=== PATIENT | male | born 1975 | race African-American/Black ===

== ENCOUNTER 2017-06-05 20:42 | Emergency (ER) | payer SELFPAY ==
[2017-06-05 20:51] VITALS: BP 142/90; BMI 28.8
--- NOTE | 2017-06-05 21:42 | DR.GENAD ---
HPI - PCP Primary Care Physician: nfd - Complaint/Symptoms Chief Complaint:: dental problems Self Treatment fo Chief Complaint: patient has been taking goody powders and ibuprofen. - Nurses notes reviewed Nurses Notes Review: Yes - Source History Provided: Patient - Mode of Arrival Mode of Arrival: Ambulatory - Timing Onset of Chief Complaint: 05/29/17 Came on: Gradually - Duration Duration: Constant How lon Duration: Days - Location Location: teeth - Severity Severity: Moderate - Modifying Factors Worsens:: chewing - Other History Other History: poor dentition PMH - PMH Past Medical History: No Past Surgical History: Yes Surgical History: Ortho Surgery Past Surgical History Comment: testicular torsion, ortho ankle and left hand - Family History History of Family Medical Conditions: Yes Family Medical History: Cancer - Social History Does patient currently use any type of tobacco product: Yes Have you used tobacco products in the last 12 months: Yes Type of Tobacco Use: Cigarettes Does any household member use tobacco: No Alcohol Use: None Do you use any recreational Drugs:: No Lives With: Family Lives Where: Home - infectious screening In the last 2 months have you had wt loss of >10#?: NO Have you had fever, night sweats or hemotysis?: No Have you traveled outside the country in the last 6 months?: No Isolation: Standard ROS - Review of Systems Constitutional: No Symptoms Reported Eyes: No Symptoms Reported ENTM: Mouth Pain (toothache) Respiratoy: No Symptoms Reported Cardiovascular: No Symptoms Reported Gastrointestinal/Abdominal: No Symptoms Reported Genitourinary: No Symptoms Reported Neurological: No Symptoms Reported Musculoskeletal: No Symptoms Reported Integumentary: No Symptoms Reported Hematologic/Lymphatic: No Symptoms Reported Endocrine: No Symptoms Reported Psychiatric: No Symptoms Reported PE - Vital Signs Vitals: Temperature 98.7 F Pulse Rate 85 Respiratory Rate 18 Blood Pressure 142/90 O2 Sat by Pulse Oximetry 97 - General Limitations: No Limitations General Appearance: Alert, In No Apparent Distress - Head Head Exam: Normal Inspection - Eyes Eye exam: Normal Appearance, EOMI. negative: Scleral Icterus, Conjunctival Injection - ENT ENT Exam: Normal Oropharynx - Neck Neck Exam: Normal Inspection, Full ROM, Trachea Midline - Chest Chest Inspection: Normal Inspection - Respiratory Respiratory Exam: negative: Accessory Muscle Use, Respiratory Distress - Extremities Extremities Exam: Normal Inspection, Full ROM - Neurologic Neurological Exam: Alert, Oriented X3, CN II-XII Intact - Psychiatric Psychiatric Exam: Normal Affect - Skin Skin Exam: Intact, Normal Color - Diagnosis Discharge Problem: Toothache - Discharge Plan Condition: Stable Prescriptions: Amoxicillin 500 mg PO TID #30 cap Tramadol HCl [ULTRAM 50 MG *] 50 mg PO Q8H PRN #15 tab PRN Reason: Pain - Follow ups/Referrals Follow ups/Referrals: NFD,None [Primary Care Provider] - 3 days - Instructions
[2017-06-05] MEDS ORDERED: AMOXIL CAP 500 MG PO ONE ×2 (21:44→21:47)
[2017-06-05] MEDS ORDERED: ULTRAM PO ONE (21:44)
[2017-06-05] MEDS ORDERED: ULTRAM ONE (21:48)
== END 2017-06-05 21:57 | disposition home or self-care (01) ==
LOC: ER 21:01
DX: K08.89 Other specified disorders of teeth and supporting structures (principal)
CPT/HCPCS: 99282

== ENCOUNTER 2017-08-03 23:29 | Emergency (ER) | payer SELFPAY ==
[2017-08-03 23:40] VITALS: BP 147/87; BMI 25.9
--- NOTE | 2017-08-04 00:59 | DR.GENAD ---
HPI - PCP Primary Care Physician: NFD - Complaint/Symptoms Chief Complaint Doctors Comments: Patient states that he works 12hrs/day six days per week and he is just tired. Chief Complaint:: " I BEEN DIZZY COLD SWEATS PAIN IN TEETH AND HEADACHE AND BEEN REAL TIRED FEELING. I BEEN CONFUSED AND HAD A ANXIETY ATTACK SUNDAY." - Source History Provided: Patient - Mode of Arrival Mode of Arrival: Ambulatory - Timing Onset of Chief Complaint: 07/31/17 PMH - PMH Past Medical History: No Past Medical History: Anxiety Past Surgical History: Yes Surgical History: Ortho Surgery, Other - Family History History of Family Medical Conditions: Yes Family Medical History: Cancer - Social History Type of Tobacco Use: Cigarettes Alcohol Use: None Do you use any recreational Drugs:: No Lives With: Family Lives Where: Home - infectious screening Have you traveled outside the country in the last 6 months?: No ROS - Review of Systems Eyes: No Symptoms Reported ENTM: No Symptoms Reported Respiratoy: No Symptoms Reported Cardiovascular: No Symptoms Reported Gastrointestinal/Abdominal: No Symptoms Reported Genitourinary: No Symptoms Reported Neurological: No Symptoms Reported Musculoskeletal: No Symptoms Reported Integumentary: No Symptoms Reported Hematologic/Lymphatic: No Symptoms Reported Endocrine: No Symptoms Reported Psychiatric: No Symptoms Reported All Other Systems: Reviewed and Negative PE - Vital Signs Vitals: Temperature 98.6 F Pulse Rate 73 Respiratory Rate 18 Blood Pressure 147/87 O2 Sat by Pulse Oximetry 100 - General General Appearance: Alert, In No Apparent Distress - Head Head Exam: Normal Inspection, Atraumatic - Eyes Eye exam: Normal Appearance, PERRL, EOMI - ENT ENT Exam: Normal Exam, Normal Oropharynx External Ear Exam: Normal External Inspection TM/Canal Exam: Bilateral Normal Nose Exam: Normal Nose Exam, Sinus Tenderness Mouth Exam: Normal Inspection Throat Exam: Tonsillar Erythema - Neck Neck Exam: Normal Inspection - Chest Chest Inspection: Normal Inspection - Respiratory Respiratory Exam: Normal Lung Sounds Bilat Respiratory Exam: Bilateral Clear to Auscultation - Cardiovascular Cardiovascular Exam: Regular Rate - Abdominal Exam Abdominal Exam: Normal Inspection Abdominal Tenderness: negative: RUQ, RLQ, LUQ, LLQ, Epigastrium, Suprapubic, Diffuse, Mild, Moderate, Severe, Other - Extremities Extremities Exam: Normal Inspection - Back Back Exam: Normal Inspection, Full ROM - Neurologic Neurological Exam: Alert, Oriented X3, CN II-XII Intact - Psychiatric Psychiatric Exam: Normal Affect, Normal Mood - Skin Skin Exam: Warm, Dry, Intact ROR - Labs Reviewed Laboratory Results Reviewed?: Yes (strep positive) - Diagnosis Discharge Problem: Pharyngitis Qualifiers: Pharyngitis/tonsillitis etiology: streptococcus Qualified Code(s): J02.0 - Streptococcal pharyngitis - Discharge Plan Condition: Stable - Follow ups/Referrals Follow ups/Referrals: NFD,None [Primary Care Provider] - 3 days - Instructions
== END 2017-08-04 01:37 | disposition home or self-care (01) ==
LOC: ER 23:44
DX: J02.0 Streptococcal pharyngitis (principal)
CPT/HCPCS: 87880; 99282

== ENCOUNTER 2017-09-07 10:41 | Emergency (ER) | payer SELFPAY ==
[2017-09-07 10:45] VITALS: BP 137/82; BMI 28.1
--- NOTE | 2017-09-07 11:05 | DR.GENAD ---
HPI - PCP Primary Care Physician: NFAly - HPI Comment HPI Comment: SYMTOMS WORSE TODAY. FEVER ON ABD OFF. TOOK SEVERAL ROUNDS OF ANTIBIOTICS BUT IT KEEP COMING BACK. - Complaint/Symptoms Chief Complaint Doctors Comments: SORE THROAT AND RT SIDE NECK SWELLING AND PAIN. Chief Complaint:: PT. C/O RIGHT SIDE OF HIS NECK FEELING SWOLLEN OR POSSIBLY HAVING A KNOT TO THAT AREA. PT. STATES IT IS PAINFUL AT TIMES AND HAS BEEN THERE FOR A WHILE. - Nurses notes reviewed Nurses Notes Review: Yes - Source History Provided: Patient - Mode of Arrival Mode of Arrival: Ambulatory - Timing Onset of Chief Complaint: 08/08/17 Came on: Gradually - Duration Duration: Constant Duration: Days PMH - PMH Past Medical History: No Past Medical History: Anxiety Past Surgical History: Yes Surgical History: Other Past Surgical History Comment: LEFT HAND - Family History History of Family Medical Conditions: Yes Family Medical History: Cancer - Social History Does patient currently use any type of tobacco product: Yes Have you used tobacco products in the last 12 months: Yes Type of Tobacco Use: Cigarettes Does any household member use tobacco: No Alcohol Use: None Do you use any recreational Drugs:: Yes (MARIJUANA) Lives With: Alone Lives Where: Home - infectious screening In the last 2 months have you had wt loss of >10#?: NO Have you had fever, night sweats or hemotysis?: No Have you traveled outside the country in the last 6 months?: No Isolation: Standard ROS - Review of Systems Constitutional: Fever Eyes: No Symptoms Reported ENTM: Mouth Pain, Throat Pain. negative: Ear Pain, Nose Discharge, Nose Congestion Respiratoy: Non-Productive Cough Cardiovascular: No Symptoms Reported Gastrointestinal/Abdominal: No Symptoms Reported Genitourinary: No Symptoms Reported Neurological: Headache Musculoskeletal: No Symptoms Reported Integumentary: No Symptoms Reported Hematologic/Lymphatic: No Symptoms Reported Endocrine: No Symptoms Reported All Other Systems: Reviewed and Negative PE - Vital Signs Vitals: Temperature 98.8 F Pulse Rate 84 Respiratory Rate 17 Blood Pressure 137/82 O2 Sat by Pulse Oximetry 98 - General Limitations: No Limitations General Appearance: Alert - Head Head Exam: Normal Inspection - Eyes Eye exam: Normal Appearance - ENT ENT Exam: Normal External Ear Exam External Ear Exam: Normal External Inspection TM/Canal Exam: Bilateral Normal Nose Exam: Normal Nose Exam Mouth Exam: Other (MOLARS TEETH EATEN UP WITH REMINALT EMBEDDE IN GUM. THROAT RED.) Throat Exam: Tonsillar Erythema (LT) - Neck Neck Exam: Trachea Midline, Tenderness (RT SUB MANDIBULAR NODES PALPABLE AND TENDER.) - Chest Chest Inspection: Symmetric Chest Wall Rise - Respiratory Respiratory Exam: Normal Lung Sounds Bilat Respiratory Exam: Bilateral Clear to Auscultation - Cardiovascular Cardiovascular Exam: Regular Rate, Normal Rhythm, Normal Heart Sounds - Abdominal Exam Abdominal Exam: Normal Bowel Sounds, Soft. negative: Tenderness - Extremities Extremities Exam: Normal Inspection - Back Back Exam: Normal Inspection - Neurologic Neurological Exam: Alert, Oriented X3 - Psychiatric Psychiatric Exam: Normal Affect, Normal Mood - Skin Skin Exam: Normal Color MDM - Differential Diagnosis Differential Diagnosis: TONSILITIS, ADENITIS, TENDAL INFECTION, GINGIVITIS. Course - Treatment Treatment: SEE ORDERS. - Education/Counseling Education/Counseling: Patient, Education Educated On: Diagnosis, Needs for Follow Up ROR - Labs Reviewed Laboratory Results Reviewed?: Yes Result Diagrams: 09/07/17 11:23 Laboratory: 09/07/17 11:25 Throat Throat Culture - Final WBC 9.2 X10^3/uL (3.6-10.0) 09/07/17 11:23 RBC 4.45 X10^6/uL (4.7-6.0) L 09/07/17 11:23 Hgb 12.8 g/dL (13.5-18.0) L 09/07/17 11:23 Hct 37.0 % (42.0-54.0) L 09/07/17 11:23 MCV 83.2 fL (80.0-100.0) 09/07/17 11:23 MCH 28.8 pg (27.0-34.0) 09/07/17 11:23 MCHC 34.6 g/dL (33.0-35.0) 09/07/17 11:23 RDW 13.5 % (11.6-16.5) 09/07/17 11:23 Plt Count 139 X10^3/uL (150.0-450.0) L 09/07/17 11:23 MPV 10.1 fL (7.4-11.0) 09/07/17 11:23 Neut % 44.6 % (42.0-75.0) 09/07/17 11:23 Lymph % 41.8 % (21.0-51.0) 09/07/17 11:23 [place] % 6.1 % (0.0-13.0) 09/07/17 11:23 Eos % 6.5 % (0.9-2.9) H 09/07/17 11:23 Baso % 1.0 % (0.2-1.0) 09/07/17 11:23 Neut # 4.1 x10^3/uL (2.2-4.8) 09/07/17 11:23 Lymph # 3.9 X10^3/uL (1.3-2.9) H 09/07/17 11:23 [place] # 0.6 x10^3/uL (0.3-0.8) 09/07/17 11:23 Eos # 0.6 x10^3/uL (0.0-0.2) H 09/07/17 11:23 Baso # 0.1 X10^3/uL (0.0-0.1) 09/07/17 11:23 Absolute Nucleated RBC 0.1 /100WBC 09/07/17 11:23 Streptococcus Screen Negative (NEGATIVE) 09/07/17 11:25 - Diagnosis Discharge Problem: Toothache, Cavities, Submandibular lymphadenopathy, Pain, dental Pharyngitis Qualifiers: Pharyngitis/tonsillitis etiology: other specified organisms Qualified Code(s): J02.8 - Acute pharyngitis due to other specified organisms - Discharge Plan Disposition: HOME, SELF-CARE Condition: Stable Prescriptions: Clindamycin HCl 300 mg PO Q6H #40 cap Ibuprofen [MOTRIN TAB 800 MG *] 800 mg PO Q8H PRN #20 tab PRN Reason: Pain/Inflammation - Follow ups/Referrals Follow ups/Referrals: NFD,None [Primary Care Provider] - 3 days EDNA SNYDER [STAFF PHYSICIAN] - 3 days - Instructions Instructions: Tonsillitis, [id number], Gingivitis, [id number], Dental Caries Additional Instructions: RETURN TO ED IF WORSE. FOLLOW UP WITH DENTIST AND EAR, NOSE AND THROAT
[2017-09-07 11:32] LABS: BASOPHILS # (AUTO) 0.1 X10^3/uL (0.0-0.1); EOSINOPHILS # (AUTO) 0.6 x10^3/uL (0.0-0.2); EOSINOPHILS % (AUTO) 6.5 % (0.9-2.9); HEMOGLOBIN 12.8 g/dL (13.5-18.0); LYMPHOCYTES # (AUTO) 3.9 X10^3/uL (1.3-2.9); LYMPHOCYTES % (AUTO) 41.8 % (21.0-51.0); MEAN CORPUSCULAR HEMOGLOBIN 28.8 pg (27.0-34.0); MEAN CORPUSCULAR HGB CONC 34.6 g/dL (33.0-35.0); MEAN CORPUSCULAR VOLUME 83.2 fL (80.0-100.0); MEAN PLATELET VOLUME 10.1 fL (7.4-11.0); MONOCYTES # (AUTO) 0.6 x10^3/uL (0.3-0.8); MONOCYTES % (AUTO) 6.1 % (0.0-13.0); NEUTROPHILS # (AUTO) 4.1 x10^3/uL (2.2-4.8); NEUTROPHILS % (AUTO) 44.6 % (42.0-75.0); PLATELET COUNT 139 X10^3/uL (150.0-450.0); RED BLOOD COUNT 4.45 X10^6/uL (4.7-6.0); RED CELL DISTRIBUTION WIDTH 13.5 % (11.6-16.5); WHITE BLOOD COUNT 9.2 X10^3/uL (3.6-10.0)
== END 2017-09-07 12:15 | disposition home or self-care (01) ==
LOC: ER 10:48
DX: J02.8 Acute pharyngitis due to other specified organisms (principal); R59.0 Localized enlarged lymph nodes; K08.89 Other specified disorders of teeth and supporting structures; K02.9 Dental caries, unspecified
CPT/HCPCS: 36415; 85025; 87070; 87880; 99282

== ENCOUNTER 2017-09-12 00:16 | Emergency (ER) | payer SELFPAY ==
[2017-09-12 00:24] VITALS: BP 151/100; BMI 27.3
--- NOTE | 2017-09-12 00:58 | DR.GENAD ---
HPI - HPI Comment HPI Comment: SEEN IN ED 2 DAYS AGO AND PRESCRIBE CLINDAMYCIN. TAKING MED BUT WANT XRAY OF HIS TEETH AND MOUTH. NO FEVER. DIS NOT TAKE MEDICATION PRESCRIBE 2 DAYS AGO. DENIES DRAINAGE. - Complaint/Symptoms Chief Complaint Doctors Comments: SORE THROAT AND TOOTHACHE FOR SEVERAL WEEKS. Chief Complaint:: PT C/O TONSIL AND TEETH PAIN. PT WAS SEEN FOR SAME 3 DAYS AGO. PT REFUSED TO ANSWER QUESTIONS IN TRIAGE STATES THAT WE CAN "SEE THE CHART FROM [facility]" REQUESTING XRAY OF MOUTH Self Treatment fo Chief Complaint: DID NOT FOLLOW WITH DENTIST - Nurses notes reviewed Nurses Notes Review: Yes - Source History Provided: Patient - Mode of Arrival Mode of Arrival: Ambulatory - Timing Onset of Chief Complaint: 09/08/17 Came on: Suddenly - Duration Duration: Constant Duration: Days - Severity Severity: Moderate PMH - PMH Past Medical History: Yes Past Medical History: Anxiety Past Surgical History: No Surgical History: Other - Family History History of Family Medical Conditions: Yes Family Medical History: Cancer - Social History Do you use any recreational Drugs:: Yes (MARIJUANA) - infectious screening Have you traveled outside the country in the last 6 months?: No ROS - Review of Systems Constitutional: No Symptoms Reported Eyes: No Symptoms Reported ENTM: Mouth Pain, Throat Pain. negative: Ear Pain, Nose Discharge, Nose Congestion Respiratoy: No Symptoms Reported Cardiovascular: No Symptoms Reported Gastrointestinal/Abdominal: No Symptoms Reported Genitourinary: No Symptoms Reported Neurological: No Symptoms Reported. negative: Headache Musculoskeletal: No Symptoms Reported Integumentary: No Symptoms Reported Hematologic/Lymphatic: Lymphadenopathy Endocrine: No Symptoms Reported All Other Systems: Reviewed and Negative PE - Vital Signs Vitals: Temperature 98.6 F Pulse Rate 83 Respiratory Rate 18 Blood Pressure 151/100 O2 Sat by Pulse Oximetry 100 - General Limitations: No Limitations General Appearance: Alert - Head Head Exam: Normal Inspection - Eyes Eye exam: Normal Appearance - ENT ENT Exam: Normal External Ear Exam External Ear Exam: Normal External Inspection TM/Canal Exam: Bilateral Normal Nose Exam: Normal Nose Exam Mouth Exam: Other (MOLARS ARE ALL DECAY. ONLY POTION OF TOOTH ENBEDED IN GUM REMAIN. GUM LESS INFLAME TODAY.) Throat Exam: Tonsillar Erythema, Tonsillomegaly. negative: Tonsillar Exudate - Neck Neck Exam: Trachea Midline, Lymphadenopathy (RT SUBMANDIBULAR NODE INFLAME.) - Chest Chest Inspection: Symmetric Chest Wall Rise - Respiratory Respiratory Exam: Normal Lung Sounds Bilat Respiratory Exam: Bilateral Clear to Auscultation - Abdominal Exam Abdominal Exam: Normal Bowel Sounds, Soft. negative: Tenderness - Extremities Extremities Exam: Normal Inspection - Back Back Exam: Normal Inspection - Neurologic Neurological Exam: Alert, Oriented X3 - Psychiatric Psychiatric Exam: Normal Affect - Skin Skin Exam: Normal Color MDM - Differential Diagnosis Differential Diagnosis: DENTAL PAIN, GINGIVITIS, TONSILITIS Course - Treatment Treatment: SEE ORDERS. - Education/Counseling Education/Counseling: Patient, Education Educated On: Treatment, Diagnosis, Needs for Follow Up - Diagnosis Discharge Problem: Chronic gum disease, Submandibular lymphadenopathy, Toothache Pharyngitis Qualifiers: Pharyngitis/tonsillitis etiology: other specified organisms Qualified Code(s): J02.8 - Acute pharyngitis due to other specified organisms - Discharge Plan Disposition: 01 HOME, SELF-CARE Condition: Stable - Follow ups/Referrals Follow ups/Referrals: TORRES DIAS [REFERRING] - 09/13/17 NFD,None [Primary Care Provider] - 09/13/17 - Instructions Instructions: Tonsillitis, [id number], Gingivitis Additional Instructions: RETURN TO ED IF WORSE. SEE DENTIST THIS AM. CONTINUE WITH CLINDAMYCIN
== END 2017-09-12 02:12 | disposition home or self-care (01) ==
LOC: ER 00:16
DX: K06.9 Disorder of gingiva and edentulous alveolar ridge, unspecified (principal); R59.0 Localized enlarged lymph nodes; K08.89 Other specified disorders of teeth and supporting structures; J02.8 Acute pharyngitis due to other specified organisms
CPT/HCPCS: 99281; 99282

== ENCOUNTER 2018-03-03 23:52 | Emergency (ER) | payer SELFPAY ==
[2018-03-04 00:10] VITALS: BMI 28.1
[2018-03-04 00:31] LABS: BILIRUBIN,URINE NEGATIVE (NEGATIVE); BLOOD/HEMOGLOBIN,URINE 1+ (NEGATIVE); GLUCOSE, URINE NEGATIVE (NEGATIVE); KETONES,URINE NEGATIVE (NEGATIVE); LEUKOCYTE ESTERASE ,URINE 1+ (NEGATIVE); NITRITES,URINE NEGATIVE (NEGATIVE); PROTEIN,URINE NEGATIVE (NEGATIVE); UROBILINOGEN,URINE NORMAL (NORMAL)
[2018-03-04 00:34] LABS: APPEARANCE,URINE CLEAR (CLEAR); COLOR,URINE YELLOW (YELLOW)
[2018-03-04 00:35] LABS: BACTERIA,URINE NEGATIVE /HPF (NEGATIVE); RBC,URINE 0-2 /HPF (NONE SEEN); SQUAMOUS EPITHELIAL CELL,UR RARE /HPF (NEGATIVE)
[2018-03-04 00:41] LABS: BASOPHILS # (AUTO) 0.1 X10^3/uL (0.0-0.1); BASOPHILS % (AUTO) 0.9 % (0.2-1.0); EOSINOPHILS # (AUTO) 0.8 x10^3/uL (0.0-0.2); EOSINOPHILS % (AUTO) 7.2 % (0.9-2.9); HEMOGLOBIN 12.3 g/dL (13.5-18.0); LYMPHOCYTES # (AUTO) 4.9 X10^3/uL (1.3-2.9); LYMPHOCYTES % (AUTO) 42.2 % (21.0-51.0); MEAN CORPUSCULAR HEMOGLOBIN 28.4 pg (27.0-34.0); MEAN CORPUSCULAR HGB CONC 33.1 g/dL (33.0-35.0); MEAN CORPUSCULAR VOLUME 85.6 fL (80.0-100.0); MEAN PLATELET VOLUME 10.5 fL (7.4-11.0); MONOCYTES # (AUTO) 0.6 x10^3/uL (0.3-0.8); MONOCYTES % (AUTO) 5.5 % (0.0-13.0); NEUTROPHILS # (AUTO) 5.1 x10^3/uL (2.2-4.8); NEUTROPHILS % (AUTO) 44.2 % (42.0-75.0); PLATELET COUNT 134 X10^3/uL (150.0-450.0); RED BLOOD COUNT 4.32 X10^6/uL (4.7-6.0); RED CELL DISTRIBUTION WIDTH 13.9 % (11.6-16.5); WHITE BLOOD COUNT 11.6 X10^3/uL (3.6-10.0)
--- NOTE | 2018-03-04 01:14 | DR.CP ---
HPI - Time Seen Time seen: 15:00 - PCP Primary Care Physician: KELLEE - HPI Comment HPI Comment: TONIGHT PAIN WORSE. FEEL HIT ON THE RIGHT SIDE. WAS AT [facility] YESTERDAY. DIAGNOSE WITH KIDNEY STONE BUT NOT BETTER. STATED WITH DIARRHEA TODAY. NO FEVER OR DYSURIA. - Complaint Chief Complaint Doctor Comments: ABDOMINAL PAIN AND CHEST PAIN TIMES 2 WEEKS. Chief Complaint:: CHEST PAIN FOR LAST 2 WEEKS. "ITS BEEN IN MY INTESTINES, POINTING TO THE EPIGASTRIC AREA. I WENT TO [facility] THEY TOLD ME I HAD A KIDNEY STONE. I DON;T KNOW IF ITS ALL BROKE UP NOW AND MOVED." - Reviewed Nurses Notes Review: Yes - Source History Provided: Patient, EMS - Mode of Arrival Mode of Arrival: EMS - Timing Onset of Chief Complaint: 02/17/18 Came on: Suddenly Pain: Present Now - Duration Duration: Constant Duration: Days - Location Location of Chest Pain: Chest Chest Pain Radiation Location: Abdomen - Context Onset: At rest Cardiac Risk Factors: Smoker PE Risk Factors: None History of: None Prehospital Care: IV - Quality Quality: Sharp - Severity Severity: Moderate - Modifying Factors Worsens: Nothing Impoves: Nothing - Associated Signs and Symptoms Associated Signs and Symptoms: Abdominal Pain PMH - PMH Past Medical History: Yes Past Medical History: Anxiety Past Surgical History: Yes Surgical History: Other Past Surgical History Comment: LEFT HAND - Family History History of Family Medical Conditions: Yes Family Medical History: Cancer - Social History Type of Tobacco Use: Cigarettes Alcohol Use: None Do you use any recreational Drugs:: Yes (MARIJUANA) Lives Where: Home - infectious screening Have you traveled outside the country in the last 6 months?: No Isolation: Standard ROS - Review of Systems Constitutional: Weakness, Fatigue. negative: Fever Eyes: No Symptoms Reported. negative: Eye Pain, Discharge ENTM: No Symptoms Reported. negative: Ear Discharge, Nose Discharge, Nose Congestion, Throat Pain Respiratoy: No Symptoms Reported, See HPI. negative: Short of Breath, Wheezing , Hemoptysis Cardiovascular: Chest Pain Gastrointestinal/Abdominal: Abdominal Pain, Diarrhea, Nausea. negative: Vomiting Genitourinary: No Symptoms Reported. negative: Dysuria, Frequency, Hematuria, Pain Neurological: Weakness, Dizziness Musculoskeletal: Muscle Pain Integumentary: Dryness All Other Systems: Reviewed and Negative PE - Vitals Vitals: Temperature 98.8 F Pulse Rate [Right Brachial] 60 Pulse Rate 80 Respiratory Rate 62 Blood Pressure [Right Arm] 121/82 Blood Pressure 149/88 O2 Sat by Pulse Oximetry 100 - General Limitations: No Limitations General Appearance: Alert - Head Head Exam: Normal Inspection - Eyes Eye exam: Normal Appearance - ENT ENT Exam: Normal External Ear Exam - Respiratory Respiratory Exam: Normal Lung Sounds Bilat Respiratory Exam: Bilateral Rhonchi, Lower Rhonchi - Cardiovascular Cardiovascular Exam: Regular Rate, Normal Rhythm, Normal Heart Sounds - Abdominal Exam Abdominal Exam: Normal Bowel Sounds, Soft, Tenderness Abdominal Tenderness: Diffuse, Moderate - Extremities Extremities Exam: Normal Inspection. negative: Edema - Back Back Exam: Normal Inspection - Neurologic Neurological Exam: Alert, Oriented X3 - Psychiatric Psychiatric Exam: Anxious - Skin Skin Exam: Erythema MDM - Differential Diagnosis Differential Diagnosis: Chest Wall Pain, Esophageal Reflux/Spasm, Gastritis, Myocardial Infarction, Pleuritis, Pneumonia Course - Treatment Treatment: SEE ORDERS. - Education/Counseling Education/Counseling: Patient, Education Educated On: Diagnosis, Needs for Follow Up ROR - Labs Reviewed Laboratory Results Reviewed?: Yes Result Diagrams: 03/04/18 00:34 03/04/18 00:34 Laboratory: 03/04/18 03:00 Stool - Final WBC 11.6 X10^3/uL (3.6-10.0) H 03/04/18 00:34 RBC 4.32 X10^6/uL (4.7-6.0) L 03/04/18 00:34 Hgb 12.3 g/dL (13.5-18.0) L 03/04/18 00:34 Hct 37.0 % (42.0-54.0) L 03/04/18 00:34 MCV 85.6 fL (80.0-100.0) 03/04/18 00:34 MCH 28.4 pg (27.0-34.0) 03/04/18 00:34 MCHC 33.1 g/dL (33.0-35.0) 03/04/18 00:34 RDW 13.9 % (11.6-16.5) 03/04/18 00:34 Plt Count 134 X10^3/uL (150.0-450.0) L 03/04/18 00:34 MPV 10.5 fL (7.4-11.0) 03/04/18 00:34 Neut % (Auto) 44.2 % (42.0-75.0) 03/04/18 00:34 Lymph % (Auto) 42.2 % (21.0-51.0) 03/04/18 00:34 [place] % (Auto) 5.5 % (0.0-13.0) 03/04/18 00:34 Eos % (Auto) 7.2 % (0.9-2.9) H 03/04/18 00:34 Baso % (Auto) 0.9 % (0.2-1.0) 03/04/18 00:34 Neut # (Auto) 5.1 x10^3/uL (2.2-4.8) H 03/04/18 00:34 Lymph # (Auto) 4.9 X10^3/uL (1.3-2.9) H 03/04/18 00:34 [place] # (Auto) 0.6 x10^3/uL (0.3-0.8) 03/04/18 00:34 Eos # (Auto) 0.8 x10^3/uL (0.0-0.2) H 03/04/18 00:34 Baso # (Auto) 0.1 X10^3/uL (0.0-0.1) 03/04/18 00:34 Absolute Nucleated RBC 0.1 /100WBC 03/04/18 00:34 Sodium 142 mmol/L (136-145) 03/04/18 00:34 Corrected Sodium TNP 03/04/18 00:34 Potassium 3.5 mmol/L (3.5-5.1) 03/04/18 00:34 Chloride 105 mmol/L (98-107) 03/04/18 00:34 Carbon Dioxide 28.2 mmol/L (21-32) 03/04/18 00:34 BUN 21 mg/dL (7-18) H 03/04/18 00:34 Creatinine 1.03 mg/dL (0.70-1.30) 03/04/18 00:34 Est GFR (MDRD) Af Amer > 60 (>60) 03/04/18 00:34 Est GFR (MDRD) Non-Af > 60 (>60) 03/04/18 00:34 Glucose 95 mg/dL (65-99) 03/04/18 00:34 Calcium 8.5 mg/dL (8.5-10.1) 03/04/18 00:34 Corrected Calcium TNP 03/04/18 00:34 Total Bilirubin 0.20 mg/dL (0.2-1.0) 03/04/18 00:34 AST 64 Units/L (15-37) H 03/04/18 00:34 ALT 53 Units/L (12-78) 03/04/18 00:34 Alkaline Phosphatase 101 Units/L (46-116) 03/04/18 00:34 Creatine Kinase 2753 Units/L (39-308) H 03/04/18 00:34 CK-MB (CK-2) 2.8 ng/mL (0-4.0) 03/04/18 00:34 CK/CKMB % Calc 0.1 % (<4) 03/04/18 00:34 Troponin I < 0.02 ng/mL (0-1.5) 03/04/18 00:34 Total Protein 7.5 g/dL (6.4-8.2) 03/04/18 00:34 Albumin 3.9 g/dL (3.4-5.0) 03/04/18 00:34 Globulin 3.6 g/dL (2.5-4.5) 03/04/18 00:34 Albumin/Globulin Ratio 1.1 Ratio (1.1-2.1) 03/04/18 00:34 Specimen Type Clean catch urine 03/04/18 00:20 Urine Color Yellow (YELLOW) 03/04/18 00:20 Urine Appearance Clear (CLEAR) 03/04/18 00:20 Urine pH 5.0 (5.0 - 8.0) 03/04/18 00:20 Ur Specific [place] 1.015 (1.000-1.030) 03/04/18 00:20 Urine Protein Negative (NEGATIVE) 03/04/18 00:20 Urine Glucose (UA) Negative (NEGATIVE) 03/04/18 00:20 Urine Ketones Negative (NEGATIVE) 03/04/18 00:20 Urine Occult Blood 1+ (NEGATIVE) 03/04/18 00:20 Urine Nitrite Negative (NEGATIVE) 03/04/18 00:20 Urine Bilirubin Negative (NEGATIVE) 03/04/18 00:20 Urine Urobilinogen Normal (NORMAL) 03/04/18 00:20 Ur Leukocyte Esterase 1+ (NEGATIVE) 03/04/18 00:20 Urine RBC 0-2 /HPF (NONE SEEN) 03/04/18 00:20 Urine WBC 0-2 /HPF (NONE SEEN) 03/04/18 00:20 Ur Squamous Epith Cells Rare /HPF (NEGATIVE) 03/04/18 00:20 Urine Bacteria Negative /HPF (NEGATIVE) 03/04/18 00:20 Ur Culture Indicated? No/not indicated 03/04/18 00:20 Stool Description 15 g. brown/liquid 03/04/18 03:00 Stool for White Cells Negative (NEGATIVE) 03/04/18 03:00 Stl C. diff Tox B Gene Negative (NEGATIVE) 03/04/18 03:00 Stl C. diff [id number] Negative (NEGATIVE) 03/04/18 03:00 Urine Opiates Screen Negative (NEG=<300) 03/04/18 00:20 Urine Methadone Screen Negative (NEG=<300) 03/04/18 00:20 Ur Barbiturates Screen Negative (NEG=<200) 03/04/18 00:20 Ur Phencyclidine Scrn Negative (NEG=<25) 03/04/18 00:20 Ur Amphetamines Screen Negative (NEG=<1000) 03/04/18 00:20 U Benzodiazepines Scrn Negative (NEG=<200) 03/04/18 00:20 Urine Cocaine Screen Negative (NEG=<300) 03/04/18 00:20 U Marijuana (THC) Screen Negative (NEG=<50) 03/04/18 00:20 Cryptosporid parvum Ag Negative (NEGATIVE) 03/04/18 03:00 E. histolytica Antigen Negative (NEGATIVE) 03/04/18 03:00 Giardia lamblia Ag Negative (NEGATIVE) 03/04/18 03:00 - XRAY XRAY Interpreted by: Radiologist XRAY Findings: REPORT DISCUSS WITH PATIENT. - EKG Rhythm: NSR (EKG NOTED) - Diagnosis Discharge Problem: Abdominal pain Qualifiers: Abdominal location: upper abdomen, unspecified Qualified Code(s): R10.10 - Upper abdominal pain, unspecified Chest pain Qualifiers: Chest pain type: unspecified Qualified Code(s): R07.9 - Chest pain, unspecified Rhabdomyolysis Qualifiers: Rhabdomyolysis type: non-traumatic Qualified Code(s): M62.82 - Rhabdomyolysis Diarrhea Qualifiers: Diarrhea type: unspecified type Qualified Code(s): R19.7 - Diarrhea, unspecified - Discharge Plan Condition: Stable Prescriptions: Dicyclomine HCl [Bentyl Cap 10 mg] 10 mg PO TID PRN #15 cap PRN Reason: Diphenoxylate/Atropine [Lomotil] 1 tab PO TID PRN #15 tab PRN Reason: Ranitidine HCl [ZANTAC TAB 150 MG *] 150 mg PO BID #60 tab - Follow ups/Referrals Follow ups/Referrals: NFD,None [Primary Care Provider] - 2 days - Instructions Instructions: Chest Wall Pain, Tzel-or-Eleq, Abdominal Pain, Adult, Easy-to- Read, Diarrhea, Adult, [id number] Additional Instructions: RETURN TO ED IF WORSE.
[2018-03-04 01:19] LABS: BLOOD UREA NITROGEN 21 mg/dL (7-18); CALCIUM 8.5 mg/dL (8.5-10.1); CARBON DIOXIDE 28.2 mmol/L (21-32); CHLORIDE 105 mmol/L (98-107); CREATININE 1.03 mg/dL (0.70-1.30); SODIUM 142 mmol/L (136-145); TROPONIN I < 0.02 ng/mL (0-1.5); eGFR BLACK RACES > 60 (>60); eGFR NON BLACK RACES > 60 (>60)
[2018-03-04 01:27] LABS: ALANINE AMINOTRANSFERASE 53 Units/L (12-78); ALBUMIN 3.9 g/dL (3.4-5.0); ALKALINE PHOSPHATASE 101 Units/L (46-116); ASPARTATE AMINO TRANSFERASE 64 Units/L (15-37); CREATINE KINASE MB 2.8 ng/mL (0-4.0); TOTAL PROTEIN 7.5 g/dL (6.4-8.2)
[2018-03-04 01:28] LABS: CKMB % 0.1 % (<4); CREATINE KINASE 2753 Units/L (39-308)
[2018-03-04] MEDS ORDERED: NS 1000 ML 1,000 ML IV ONE (02:13)
[2018-03-04] MEDS ORDERED: PEPCID 20 MG IV PREMIX* 20 MG/50 ML BAG IV ONE ×2 (02:13→02:15)
[2018-03-04] MEDS ORDERED: NS 1000 ML 1,000 ML ONE (02:15)
[2018-03-04 04:06] LABS: CRYPTOSPORIDIUM PARVUM ANTIGEN NEGATIVE (NEGATIVE); GIARDIA LAMBLIA ANTIGEN NEGATIVE (NEGATIVE); STOOL FOR WBC NEGATIVE (NEGATIVE)
[2018-03-04] MEDS ORDERED: LOMOTIL PO ONE (04:49)
[2018-03-04] MEDS ORDERED: BENTYL CAP 10 MG PO ONE ×2 (05:35→05:42)
--- NOTE | 2018-03-04 05:43 | RAD ---
Chest PA and lateral Indication: Chest pain Findings: There is no pneumothorax or effusion. There is no consolidation. Heart size is normal. Impression: No acute chest process Reported By:
[2018-03-04 05:47] VITALS: BP 121/82
[2018-03-04] MEDS ORDERED: PROVENTIL NEB TX 0.083% 2.5MG/ 3ML ONE (14:45)
== END 2018-03-04 05:47 | disposition home or self-care (01) ==
LOC: ER 23:52
DX: R07.89 Other chest pain (principal); R10.84 Generalized abdominal pain; M62.82 Rhabdomyolysis; R19.7 Diarrhea, unspecified; R94.31 Abnormal electrocardiogram [ECG] [EKG]
CPT/HCPCS: 36415; 71046; 80053; 80307; 81001; 82550; 82553; 83630; 84484; 85025; 87045; 87328; 87329; 87336; 87427; 87449; 87493; 93005; 93010; 96365; 96367; 96374; 99283; S0028; G0434; J7613

== ENCOUNTER 2018-03-08 10:35 | Emergency (ER) | payer SELFPAY ==
[2018-03-08 10:39] VITALS: BP 129/81; BMI 25.8
--- NOTE | 2018-03-08 11:20 | DR.GENAD ---
HPI - PCP Primary Care Physician: nfd - Complaint/Symptoms Chief Complaint Doctors Comments: He states that it feels as if something is crawling inside him - both in the chest and abdomen. He denies consuming poorly prepared food, swimming in infested givens and has not travelled outside of the [facility] recently. Chief Complaint:: Patient stated "I think I have a parasite in my stomach. I have had diarrhea and my stomach feels like something is swimming in it for a week." - Nurses notes reviewed Nurses Notes Review: Yes - Source History Provided: Patient - Mode of Arrival Mode of Arrival: Ambulatory - Timing Onset of Chief Complaint: 03/03/18 PMH - PMH Past Medical History: No Past Medical History: Anxiety Past Surgical History: Yes Surgical History: Other Past Surgical History Comment: ortho and tesitcal surgery - Family History History of Family Medical Conditions: Yes Family Medical History: Diabetes Mellitus, Cancer - Social History Does patient currently use any type of tobacco product: Yes Have you used tobacco products in the last 12 months: Yes Type of Tobacco Use: Cigarettes Does any household member use tobacco: No Alcohol Use: None Do you use any recreational Drugs:: No Lives With: Family Lives Where: Home - infectious screening In the last 2 months have you had wt loss of >10#?: NO Have you had fever, night sweats or hemotysis?: No Have you traveled outside the country in the last 6 months?: No Isolation: Standard ROS - Review of Systems Constitutional: No Symptoms Reported Eyes: No Symptoms Reported ENTM: No Symptoms Reported Respiratoy: No Symptoms Reported Cardiovascular: No Symptoms Reported Gastrointestinal/Abdominal: Other (crawling objects within me) Genitourinary: No Symptoms Reported Neurological: No Symptoms Reported Musculoskeletal: No Symptoms Reported Integumentary: No Symptoms Reported Hematologic/Lymphatic: No Symptoms Reported Endocrine: No Symptoms Reported Psychiatric: No Symptoms Reported All Other Systems: Reviewed and Negative PE - Vital Signs Vitals: Temperature 98.6 F Pulse Rate 77 Respiratory Rate 19 Blood Pressure [Right Arm] 121/82 Blood Pressure 129/81 O2 Sat by Pulse Oximetry 99 - General Limitations: No Limitations General Appearance: Alert, In No Apparent Distress - Head Head Exam: Normal Inspection - Eyes Eye exam: Normal Appearance - ENT ENT Exam: Normal Exam - Neck Neck Exam: Normal Inspection - Chest Chest Inspection: Normal Inspection - Respiratory Respiratory Exam: Normal Lung Sounds Bilat - Cardiovascular Cardiovascular Exam: Regular Rate, Normal Rhythm, +S1, +S2 - Abdominal Exam Abdominal Exam: Normal Inspection, Normal Bowel Sounds, Soft - Extremities Extremities Exam: Normal Inspection - Back Back Exam: Normal Inspection - Neurologic Neurological Exam: Alert, Oriented X3 - Psychiatric Psychiatric Exam: Normal Affect, Normal Mood - Skin Skin Exam: Warm, Dry, Intact, Normal Color ROR - XRAY XRAY Interpreted by: Self (CXR NAD; KUB: no free air, non-obstructing gas pattern.) - Diagnosis Discharge Problem: Impaired sensation - Discharge Plan Disposition: HOME, SELF-CARE Condition: Stable - Follow ups/Referrals Follow ups/Referrals: NFD,None [Primary Care Provider] - 3 days - Instructions Instructions: Paresthesia, [id number]
--- NOTE | 2018-03-08 11:58 | RAD ---
Indication: Pain Exam: PA and lateral Comparison: 03/04/2018 Findings: The heart is normal. The pulmonary vessels are normal. No consolidation or effusion is seen . The bones are intact. Impression: Stable chest with no acute abnormality seen. Reported By:
--- NOTE | 2018-03-08 12:05 | RAD ---
HISTORY: Indigestion, stomach pain, vomiting Study: KUB Comparison: None Findings: Single partial view of the abdomen demonstrates a normal nonobstructive bowel-gas pattern with some r etained stool throughout the colon. No abnormal calcification or soft tissue masses are identified. T he skeletal structures appear intact. IMPRESSION: 1. No acute process. Reported By:
== END 2018-03-08 13:04 | disposition home or self-care (01) ==
LOC: ER 10:54
DX: R20.2 Paresthesia of skin (principal)
CPT/HCPCS: 71046; 74018; 99282

== ENCOUNTER 2018-03-08 20:55 | Emergency (ER) | payer SELFPAY ==
[2018-03-08 21:01] VITALS: BP 135/87; BMI 26.2
--- NOTE | 2018-03-08 21:42 | DR.GENAD ---
HPI - PCP Primary Care Physician: NFD - Complaint/Symptoms Chief Complaint Doctors Comments: same conversation from this morning. He wants to have outpt. surgery. I did tell him this is not the outpt. surgical center. He will see his PCP on Sunday to discuss his needs. Chief Complaint:: I FEEL LIKE SOMETHING IS MOVING IN MY STOMACH. I FELT SOMETHING IN THE BACK OF MY THROAT THAT FELT LIKE A FIN. Self Treatment fo Chief Complaint: CAME TO ER THREE TIMES IN LAST MONTH - Source History Provided: Patient - Mode of Arrival Mode of Arrival: Ambulatory - Timing Onset of Chief Complaint: 03/01/18 PMH - PMH Past Medical History: Yes Past Medical History: Anxiety Past Surgical History: Yes Surgical History: Ortho Surgery, Other - Family History History of Family Medical Conditions: Yes Family Medical History: Diabetes Mellitus, Cancer - Social History Type of Tobacco Use: Cigarettes Does any household member use tobacco: No Alcohol Use: DAILY Do you use any recreational Drugs:: No (WEED) Lives With: Alone Lives Where: Home - infectious screening In the last 2 months have you had wt loss of >10#?: NO Have you had fever, night sweats or hemotysis?: No Have you traveled outside the country in the last 6 months?: No Isolation: Standard PE - Vital Signs Vitals: Temperature 98.3 F Pulse Rate 84 Respiratory Rate 20 Blood Pressure [Right Arm] 121/82 Blood Pressure 135/87 O2 Sat by Pulse Oximetry 99 - Diagnosis Discharge Problem: Impaired sensation - Discharge Plan Disposition: HOME, SELF-CARE Condition: Stable - Follow ups/Referrals Follow ups/Referrals: NFD,None [Primary Care Provider] - 3 days - Instructions Instructions: Paresthesia, [id number]
== END 2018-03-08 21:55 | disposition home or self-care (01) ==
LOC: ER 21:05
DX: R20.2 Paresthesia of skin (principal)
CPT/HCPCS: 99281

== ENCOUNTER 2019-02-03 19:41 | Inpatient (IN) ==
--- NOTE | 2019-02-03 22:11 | DR.GENAD ---
HPI Time Seen Time Seen by Provider: 02/03/19 21:57 PCP Primary Care Physician: EDNA SNYDER HPI Comment HPI Comment: HISTORY BELOW. NO FEVER. HAVING HEADACHE. Complaint/Symptoms Chief Complaint Doctors Comments: TOOTHACHE RT UPPER TOOTH WITH JAW SWELLING, ON AMOCILLIN. PATIENT ALSO HAVING ABDOMINA PAIN, DIFFUSE WITH DIARRHEA. LEFT SIDED CHEST PAIN IS GETTING WORSE. NO FEVER. Chief Complaint:: ABSCESS TOOTH RIGHT UPPER. HAS BEEN ON AMOXICILLIN. OCCASIONALLY CHEST PAIN. NOTED RIGHT UPPER JAW TO BE WITH SIGNIFICANT EDEMA. Self Treatment fo Chief Complaint: AMOXICILLIN Nurses notes reviewed Nurses Notes Review: Yes Source History Provided: Patient Mode of Arrival Mode of Arrival: Ambulatory Timing Onset of Chief Complaint: 01/30/19 Came on: Suddenly Duration Duration: Constant Duration: Days Location Location: RT JAW, ABDOMEN. Severity Severity: Moderate Modifying Factors Worsens:: CHEWING. Improves:: NONE. Associated Signs and Symptoms Associated Signs and Symptoms: DIARRHEA. PMH PMH Past Medical History: Yes Past Medical History: Anxiety Past Surgical History: Yes Surgical History: Ortho Surgery and Other Past Surgical History Comment: TESTICULAR TORSION YEARS AGO Family History History of Family Medical Conditions: Yes Family Medical History: Diabetes Mellitus and Cancer Social History Have you used tobacco products in the last 12 months: Yes Type of Tobacco Use: Cigarettes Alcohol Use: Occasionally Do you use any recreational Drugs:: No Lives Where: Home infectious screening Have you traveled outside the country in the last 6 months?: No Isolation: Standard ROS Review of Systems Constitutional: No Symptoms Reported Eyes: No Symptoms Reported ENTM: Tooth/Dental Pain (SWOLLEN RT JAW.) Respiratoy: No Symptoms Reported Cardiovascular: No Symptoms Reported Gastrointestinal/Abdominal: No Symptoms Reported and Diarrhea Genitourinary: No Symptoms Reported Neurological: Headache Musculoskeletal: No Symptoms Reported Integumentary: No Symptoms Reported Hematologic/Lymphatic: No Symptoms Reported Endocrine: No Symptoms Reported Psychiatric: No Symptoms Reported All Other Systems: Reviewed and Negative PE Vital Signs Vitals: Temperature 98.2 F Pulse Rate [Apical] 84 Pulse Rate 101 Respiratory Rate 20 Blood Pressure [Left Arm] 139/78 Blood Pressure [Right Arm] 141/81 Blood Pressure 140/95 O2 Sat by Pulse Oximetry 97 General Limitations: No Limitations General Appearance: Alert and In No Apparent Distress Head Head Exam: Normal Inspection Eyes Eye exam: Normal Appearance ENT ENT Exam: Normal External Ear Exam External Ear Exam: Normal External Inspection TM/Canal Exam: Bilateral: Normal Nose Exam: Normal Nose Exam Mouth Exam: Normal Inspection and Other (RIGHT UPPER MOLARS TENDER GUM SWOLLEN AND TENDER.); negative Trismus Throat Exam: Normal Inspection Neck Neck Exam: Normal Inspection Chest Chest Inspection: Normal Inspection Respiratory Respiratory Exam: Normal Lung Sounds Bilat Respiratory Exam: Bilateral: Clear to Auscultation Cardiovascular Cardiovascular Exam: Regular Rate and Normal Rhythm Abdominal Exam Abdominal Exam: Normal Inspection, Normal Bowel Sounds and Soft; negative Tenderness Extremities Extremities Exam: Normal Inspection Back Back Exam: Normal Inspection Neurologic Neurological Exam: Alert and Oriented X3 Psychiatric Psychiatric Exam: Normal Affect and Normal Mood Skin Skin Exam: Warm, Dry, Intact and Normal Color MDM Differential Diagnosis Differential Diagnosis: DENTAL ABSCESS, RIGHT JAW PAIN, RT FACIAL CELLULITIS, DIARRHEA. COURSE Treatment Treatment: SEE ORDERS. Consultation Consultation Comments: DISCUSS PATIENT WITH DR. SNYDER, HE WILL ADMIT PATIENT. Education/Counseling Education/Counseling: Patient and Education Educated On: Diagnosis ROR Labs Reviewed Laboratory Results Reviewed?: Yes Result Diagrams: 02/05/19 05:30 02/06/19 05:25 Laboratory: 02/03/19 22:25 Blood Blood Culture - Final 02/03/19 22:20 Blood Blood Culture - Final WBC 9.4 X10^3/uL (3.6-10.0) 02/05/19 05:30 RBC 3.57 X10^6/uL (4.7-6.0) L 02/05/19 05:30 Hgb 10.2 g/dL (13.5-18.0) L 02/05/19 05:30 Hct 30.6 % (42.0-54.0) L 02/05/19 05:30 MCV 85.5 fL (80.0-100.0) 02/05/19 05:30 MCH 28.6 pg (27.0-34.0) 02/05/19 05:30 MCHC 33.4 g/dL (33.0-35.0) 02/05/19 05:30 RDW 13.7 % (11.6-16.5) 02/05/19 05:30 Plt Count 177 X10^3/uL (150.0-450.0) 02/05/19 05:30 MPV 10.3 fL (7.4-11.0) 02/05/19 05:30 Neut % (Auto) 49.5 % (42.0-75.0) 02/05/19 05:30 Lymph % (Auto) 36.6 % (21.0-51.0) 02/05/19 05:30 [place] % (Auto) 8.7 % (0.0-13.0) 02/05/19 05:30 Eos % (Auto) 4.0 % (0.9-2.9) H 02/05/19 05:30 Baso % (Auto) 1.2 % (0.2-1.0) H 02/05/19 05:30 Neut # (Auto) 4.7 x10^3/uL (2.2-4.8) 02/05/19 05:30 Lymph # (Auto) 3.5 X10^3/uL (1.3-2.9) H 02/05/19 05:30 [place] # (Auto) 0.8 x10^3/uL (0.3-0.8) 02/05/19 05:30 Eos # (Auto) 0.4 x10^3/uL (0.0-0.2) H 02/05/19 05:30 Baso # (Auto) 0.1 X10^3/uL (0.0-0.1) 02/05/19 05:30 Absolute Nucleated RBC 0.0 /100WBC 02/05/19 05:30 Sodium 141 mmol/L (136-145) 02/06/19 05:25 Corrected Sodium 142 mmol/L (136-145) 02/06/19 05:25 Potassium 3.5 mmol/L (3.5-5.1) 02/06/19 05:25 Chloride 104 mmol/L (98-107) 02/06/19 05:25 Carbon Dioxide 27.8 mmol/L (21-32) 02/06/19 05:25 BUN 6 mg/dL (7-18) L 02/06/19 05:25 Creatinine 1.03 mg/dL (0.70-1.30) 02/06/19 05:25 Est GFR (MDRD) Af Amer > 60 (>60) 02/06/19 05:25 Est GFR (MDRD) Non-Af > 60 (>60) 02/06/19 05:25 Glucose 122 mg/dL (65-99) H 02/06/19 05:25 Lactic Acid 0.7 mmol/L (0.4-2.0) 02/03/19 22:20 Calcium 8.9 mg/dL (8.5-10.1) 02/06/19 05:25 Corrected Calcium 9.7 mg/dL (8.5-10.1) 02/06/19 05:25 Magnesium 1.9 mg/dL (1.7-2.9) 02/04/19 05:25 Total Bilirubin 0.20 mg/dL (0.2-1.0) 02/06/19 05:25 AST 23 Units/L (15-37) 02/06/19 05:25 ALT 53 Units/L (12-78) 02/06/19 05:25 Alkaline Phosphatase 71 Units/L (46-116) 02/06/19 05:25 Creatine Kinase 610 Units/L (39-308) H 02/05/19 19:21 CK-MB (CK-2) < 1.0 ng/mL (0-4.0) 02/05/19 19:21 CK/CKMB % Calc 0.2 % (<4) 02/05/19 19:21 Troponin I < 0.02 ng/mL (0-1.5) 02/05/19 19:21 C-Reactive Protein 49.00 mg/L (0-3.0) H 02/03/19 22:20 Total Protein 7.2 g/dL (6.4-8.2) 02/06/19 05:25 Albumin 3.0 g/dL (3.4-5.0) L 02/06/19 05:25 Globulin 4.2 g/dL (2.5-4.5) 02/06/19 05:25 Albumin/Globulin Ratio 0.7 Ratio (1.1-2.1) L 02/06/19 05:25 Specimen Type Clean catch urine 02/05/19 00:51 Urine Color Dark yellow (YELLOW) 02/05/19 00:51 Urine Appearance Slightly hazy (CLEAR) 02/05/19 00:51 Urine pH 7.0 (5.0 - 8.0) 02/05/19 00:51 Ur Specific [place] 1.015 (1.000-1.030) 02/05/19 00:51 Urine Protein 3+ (NEGATIVE) 02/05/19 00:51 Urine Glucose (UA) Negative (NEGATIVE) 02/05/19 00:51 Urine Ketones Negative (NEGATIVE) 02/05/19 00:51 Urine Occult Blood 1+ (NEGATIVE) 02/05/19 00:51 Urine Nitrite Negative (NEGATIVE) 02/05/19 00:51 Urine Bilirubin Negative (NEGATIVE) 02/05/19 00:51 Urine Urobilinogen 1+ (NORMAL) 02/05/19 00:51 Ur Leukocyte Esterase Negative (NEGATIVE) 02/05/19 00:51 Urine RBC 0-2 /HPF (NONE SEEN) 02/05/19 00:51 Urine WBC 0-2 /HPF (NONE SEEN) 02/05/19 00:51 Ur Squamous Epith Cells Rare /HPF (NEGATIVE) 02/05/19 00:51 Amorphous Sediment 1+ /HPF (NEGATIVE) 02/05/19 00:51 Urine Bacteria Trace /HPF (NEGATIVE) 02/05/19 00:51 Ur Culture Indicated? No/not indicated 02/05/19 00:51 XRAY XRAY Interpreted by: Radiologist XRAY Findings: REPORT ON RECORD NOTED AND DISCUSS WITH PATIENT. Instructions Instructions: Steps to Quit Smoking, [id number] Managing Pain Without Opioids Health Risks of Smoking Smoking Tobacco Information, Adult Personal Hygiene Cellulitis, Adult, [id number] Hand Washing, [id number] Preventive Dental Care, Adult Forms: Patient Portal
[2019-02-03 22:35] LABS: BASOPHILS # (AUTO) 0.1 X10^3/uL (0.0-0.1); EOSINOPHILS # (AUTO) 0.1 x10^3/uL (0.0-0.2); EOSINOPHILS % (AUTO) 0.6 % (0.9-2.9); HEMATOCRIT 34.4 % (42.0-54.0); HEMOGLOBIN 11.4 g/dL (13.5-18.0); LYMPHOCYTES # (AUTO) 3.1 X10^3/uL (1.3-2.9); LYMPHOCYTES % (AUTO) 26.1 % (21.0-51.0); MEAN CORPUSCULAR HEMOGLOBIN 28.3 pg (27.0-34.0); MEAN CORPUSCULAR HGB CONC 33.2 g/dL (33.0-35.0); MEAN CORPUSCULAR VOLUME 85.5 fL (80.0-100.0); MEAN PLATELET VOLUME 9.8 fL (7.4-11.0); MONOCYTES # (AUTO) 1.3 x10^3/uL (0.3-0.8); MONOCYTES % (AUTO) 10.8 % (0.0-13.0); NEUTROPHILS # (AUTO) 7.3 x10^3/uL (2.2-4.8); NEUTROPHILS % (AUTO) 61.5 % (42.0-75.0); PLATELET COUNT 175 X10^3/uL (150.0-450.0); RED BLOOD COUNT 4.03 X10^6/uL (4.7-6.0); RED CELL DISTRIBUTION WIDTH 13.3 % (11.6-16.5); WHITE BLOOD COUNT 11.8 X10^3/uL (3.6-10.0)
[2019-02-03 22:49] LABS: ALANINE AMINOTRANSFERASE 71 Units/L (12-78); ALBUMIN 3.7 g/dL (3.4-5.0); ALKALINE PHOSPHATASE 87 Units/L (46-116); ASPARTATE AMINO TRANSFERASE 29 Units/L (15-37); BLOOD UREA NITROGEN 12 mg/dL (7-18); CALCIUM 9.3 mg/dL (8.5-10.1); CARBON DIOXIDE 31.4 mmol/L (21-32); CHLORIDE 100 mmol/L (98-107); CREATININE 1.31 mg/dL (0.70-1.30); SODIUM 142 mmol/L (136-145); TOTAL PROTEIN 8.5 g/dL (6.4-8.2); eGFR NON BLACK RACES > 60 (>60)
[2019-02-03 22:52] LABS: LACTIC ACID 0.7 mmol/L (0.4-2.0)
--- NOTE | 2019-02-03 22:57 | RAD ---
HISTORY: Acute on chronic abdominal pain Study: Acute abdominal series Comparison: CT 06/07/2018 Findings: The lungs are clear without consolidation, effusion or pneumothorax. The cardiac and mediastinal contours are within normal limits. Flat plate and upright evaluation of the abdomen demonstrates a normal bowel gas pattern. No gross free intraperitoneal air. There is a 3 mm left renal stone. The bony structures are grossly intact. IMPRESSION: 1. No acute cardiopulmonary disease. 2. No evidence of acute abdominal pathology. 3. 3 mm left renal stone. Reported By:
[2019-02-03] MEDS ORDERED: TORADOL 60 MG VIAL IM ONE (23:17)
[2019-02-03] MEDS ORDERED: DECADRON INJ IM ONE (23:17)
[2019-02-03] MEDS ORDERED: ROCEPHIN VIAL 1 GRAM IM ONE (23:17)
[2019-02-03] MEDS ORDERED: ROCEPHIN VIAL 1 GRAM ONE (23:47)
[2019-02-03] MEDS ORDERED: TORADOL 60 MG VIAL ONE (23:47)
[2019-02-03] MEDS ORDERED: DECADRON INJ ONE (23:47)
--- NOTE | 2019-02-04 00:57 | CT ---
Maxillofacial CT with contrast Indication: Tooth abscess Technique: Helical CT images of the maxillofacial bones were obtained with IV contrast. Reformatted images in the coronal and sagittal planes were also generated for review. Comparison: None Findings: Extensive dental caries are noted. There is a thin peripherally enhancing periodontal abscess along the anterior maxilla, which measures approximately 2.0 x 0.6 x 1.5 cm in size (transverse by AP by CC dimension axial image 49 and coronal image 12). There is moderate inflammatory stranding of the right premaxillary soft tissues extending into the right nasal labial fold, compatible with cellulitis. No soft tissue gas or additional drainable fluid collections are identified. Multiple shotty submandibular lymph nodes are present, none pathologically enlarged and likely reactive. There is moderate mucosal thickening of the right greater than left maxillary sinuses. The remaining paranasal sinuses and visualized mastoid air cells are predominantly clear. Review of bone windows demonstrate no acute osseous abnormality. Visualized intracranial contents demonstrate no acute abnormality. Impression: Extensive dental caries with approximately 2 cm periodontal abscess formation along the anterior right maxilla as above. Moderate inflammatory stranding of the right premaxillary soft tissues and right nasolabial fold, compatible with cellulitis. Additional findings as above. Reported By:
[2019-02-04] MEDS ORDERED: CLEOCIN 600 MG IV PREMIX 600 MG/50 ML BAG IV ONE (02:19)
[2019-02-04] MEDS ORDERED: CLEOCIN VIAL 600 MG ONE (02:28)
[2019-02-04] MEDS ORDERED: NS 100 ML IV 100 ML ONE (02:33)
[2019-02-04] MEDS: NS 1000 ML 1,000 ML IV SCH ×3 (02:43→21:05)
[2019-02-04 04:18] VITALS: BMI 26.9
[2019-02-04] MEDS ORDERED: POTASSIUM CHLORIDE LIQ 20 MEQ UDC PO PRN (04:28)
[2019-02-04] MEDS ORDERED: KLOR-CON PO PRN (04:28)
[2019-02-04] MEDS ORDERED: K-RIDER 10 MEQ/NS 100 ML 10 MEQ/100 ML BAG IV PRN (04:28)
[2019-02-04] MEDS ORDERED: MICRO K EXTEN CAP 10 MEQ PO PRN (04:28)
[2019-02-04] MEDS ORDERED: POTASSIUM CHL 40 MEQ/NS 0.45% 500 ML IV PRN (04:28)
[2019-02-04] MEDS ORDERED: POTASSIUM CHL 60 MEQ/NS 0.45% 500 ML IV PRN (04:28)
[2019-02-04] MEDS ORDERED: MAGNESIUM SULFATE 1 GRAM/100 mL PREMIX 1 GM/100 ML BAG IV PRN (04:28)
[2019-02-04] MEDS: TORADOL 30 MG VIAL IVP PRN ×4 (05:44→22:39)
[2019-02-04 06:15] LABS: BASOPHILS # (AUTO) 0.1 X10^3/uL (0.0-0.1); BASOPHILS % (AUTO) 0.5 % (0.2-1.0); EOSINOPHILS % (AUTO) 0.1 % (0.9-2.9); HEMATOCRIT 34.9 % (42.0-54.0); HEMOGLOBIN 11.7 g/dL (13.5-18.0); LYMPHOCYTES # (AUTO) 1.2 X10^3/uL (1.3-2.9); LYMPHOCYTES % (AUTO) 10.2 % (21.0-51.0); MEAN CORPUSCULAR HEMOGLOBIN 28.3 pg (27.0-34.0); MEAN CORPUSCULAR HGB CONC 33.4 g/dL (33.0-35.0); MEAN CORPUSCULAR VOLUME 84.8 fL (80.0-100.0); MEAN PLATELET VOLUME 10.5 fL (7.4-11.0); MONOCYTES # (AUTO) 0.5 x10^3/uL (0.3-0.8); MONOCYTES % (AUTO) 4.9 % (0.0-13.0); NEUTROPHILS # (AUTO) 9.5 x10^3/uL (2.2-4.8); NEUTROPHILS % (AUTO) 84.3 % (42.0-75.0); PLATELET COUNT 176 X10^3/uL (150.0-450.0); RED BLOOD COUNT 4.12 X10^6/uL (4.7-6.0); RED CELL DISTRIBUTION WIDTH 13.5 % (11.6-16.5); WHITE BLOOD COUNT 11.3 X10^3/uL (3.6-10.0)
[2019-02-04 06:23] LABS: ALANINE AMINOTRANSFERASE 67 Units/L (12-78); ALBUMIN 3.5 g/dL (3.4-5.0); ALKALINE PHOSPHATASE 82 Units/L (46-116); ASPARTATE AMINO TRANSFERASE 29 Units/L (15-37); BLOOD UREA NITROGEN 13 mg/dL (7-18); CALCIUM 9.7 mg/dL (8.5-10.1); CHLORIDE 102 mmol/L (98-107); COR NA(FOR HYPERGLY) 140 mmol/L (136-145); CREATININE 1.23 mg/dL (0.70-1.30); SODIUM 140 mmol/L (136-145); TOTAL PROTEIN 8.3 g/dL (6.4-8.2); eGFR NON BLACK RACES > 60 (>60)
[2019-02-04] MEDS: CLEOCIN 600 MG IV PREMIX 600 MG/50 ML BAG IV SCH ×2 (13:37→21:05)
[2019-02-05 01:09] LABS: BILIRUBIN,URINE NEGATIVE (NEGATIVE); BLOOD/HEMOGLOBIN,URINE 1+ (NEGATIVE); GLUCOSE, URINE NEGATIVE (NEGATIVE); KETONES,URINE NEGATIVE (NEGATIVE); LEUKOCYTE ESTERASE ,URINE NEGATIVE (NEGATIVE); NITRITES,URINE NEGATIVE (NEGATIVE); PROTEIN,URINE 3+ (NEGATIVE); UROBILINOGEN,URINE 1+ (NORMAL)
[2019-02-05 01:16] LABS: AMORPHOUS SEDIMENT,UR 1+ /HPF (NEGATIVE); APPEARANCE,URINE SLIGHTLY HAZY (CLEAR); BACTERIA,URINE TRACE /HPF (NEGATIVE); COLOR,URINE DARK YELLOW (YELLOW); RBC,URINE 0-2 /HPF (NONE SEEN); SQUAMOUS EPITHELIAL CELL,UR RARE /HPF (NEGATIVE)
[2019-02-05] MEDS: NS 1000 ML 1,000 ML IV SCH ×5 (04:16→23:01)
[2019-02-05] MEDS: CLEOCIN 600 MG IV PREMIX 600 MG/50 ML BAG IV SCH ×3 (04:59→21:02)
[2019-02-05 05:55] LABS: ALANINE AMINOTRANSFERASE 55 Units/L (12-78); ALBUMIN 2.9 g/dL (3.4-5.0); ALKALINE PHOSPHATASE 68 Units/L (46-116); ASPARTATE AMINO TRANSFERASE 29 Units/L (15-37); BLOOD UREA NITROGEN 11 mg/dL (7-18); CALCIUM 8.5 mg/dL (8.5-10.1); CARBON DIOXIDE 27.5 mmol/L (21-32); CHLORIDE 106 mmol/L (98-107); COR CA(FOR HYPOALB) 9.4 mg/dL (8.5-10.1); CREATININE 1.03 mg/dL (0.70-1.30); SODIUM 143 mmol/L (136-145); eGFR NON BLACK RACES > 60 (>60)
[2019-02-05 06:12] LABS: BASOPHILS # (AUTO) 0.1 X10^3/uL (0.0-0.1); BASOPHILS % (AUTO) 1.2 % (0.2-1.0); EOSINOPHILS # (AUTO) 0.4 x10^3/uL (0.0-0.2); HEMATOCRIT 30.6 % (42.0-54.0); HEMOGLOBIN 10.2 g/dL (13.5-18.0); LYMPHOCYTES # (AUTO) 3.5 X10^3/uL (1.3-2.9); LYMPHOCYTES % (AUTO) 36.6 % (21.0-51.0); MEAN CORPUSCULAR HEMOGLOBIN 28.6 pg (27.0-34.0); MEAN CORPUSCULAR HGB CONC 33.4 g/dL (33.0-35.0); MEAN CORPUSCULAR VOLUME 85.5 fL (80.0-100.0); MEAN PLATELET VOLUME 10.3 fL (7.4-11.0); MONOCYTES # (AUTO) 0.8 x10^3/uL (0.3-0.8); MONOCYTES % (AUTO) 8.7 % (0.0-13.0); NEUTROPHILS # (AUTO) 4.7 x10^3/uL (2.2-4.8); NEUTROPHILS % (AUTO) 49.5 % (42.0-75.0); PLATELET COUNT 177 X10^3/uL (150.0-450.0); RED BLOOD COUNT 3.57 X10^6/uL (4.7-6.0); RED CELL DISTRIBUTION WIDTH 13.7 % (11.6-16.5); WHITE BLOOD COUNT 9.4 X10^3/uL (3.6-10.0)
[2019-02-05] MEDS: K-DUR TAB 20 MEQ PO PRN (06:23)
[2019-02-05] MEDS: TORADOL 30 MG VIAL IVP PRN ×2 (07:45→18:04)
[2019-02-05] MEDS ORDERED: AMBIEN PO PRN (19:36)
[2019-02-05 19:50] LABS: CKMB % 0.2 % (<4); CREATINE KINASE 610 Units/L (39-308); CREATINE KINASE MB < 1.0 ng/mL (0-4.0); TROPONIN I < 0.02 ng/mL (0-1.5)
[2019-02-05] MEDS: ULTRAM PO PRN (20:15)
[2019-02-05] MEDS ORDERED: MIRALAX POWDER (1 DOSE 17 G) PO SCH (21:00)
[2019-02-05] MEDS ORDERED: COLACE CAP 100 MG PO SCH (21:00)
[2019-02-06] MEDS: NS 1000 ML 1,000 ML IV SCH ×2 (02:47→12:37)
[2019-02-06] MEDS: TORADOL 30 MG VIAL IVP PRN ×2 (04:00→09:34)
[2019-02-06] MEDS: ULTRAM PO PRN ×2 (04:38→09:35)
[2019-02-06] MEDS: CLEOCIN 600 MG IV PREMIX 600 MG/50 ML BAG IV SCH (05:12)
[2019-02-06 06:37] LABS: ALANINE AMINOTRANSFERASE 53 Units/L (12-78); ALKALINE PHOSPHATASE 71 Units/L (46-116); ASPARTATE AMINO TRANSFERASE 23 Units/L (15-37); BLOOD UREA NITROGEN 6 mg/dL (7-18); CALCIUM 8.9 mg/dL (8.5-10.1); CARBON DIOXIDE 27.8 mmol/L (21-32); CHLORIDE 104 mmol/L (98-107); COR CA(FOR HYPOALB) 9.7 mg/dL (8.5-10.1); COR NA(FOR HYPERGLY) 142 mmol/L (136-145); CREATININE 1.03 mg/dL (0.70-1.30); SODIUM 141 mmol/L (136-145); TOTAL PROTEIN 7.2 g/dL (6.4-8.2); eGFR NON BLACK RACES > 60 (>60)
[2019-02-06] MEDS: K-DUR TAB 20 MEQ PO PRN (09:32)
[2019-02-06 12:30] VITALS: BP 139/78
== END 2019-02-06 13:30 | disposition home or self-care (01) | DRG 158 ==
LOC: ER 19:43 → MED/SURG 02-04 02:50
PROVIDERS: ADMIT Obstetrics & Gynecology Obstetrics; ATTEND Obstetrics & Gynecology Obstetrics
DX: N20.0 Calculus of kidney; R19.7 Diarrhea, unspecified; R07.89 Other chest pain; L03.211 Cellulitis of face; R94.4 Abnormal results of kidney function studies; K04.7 Periapical abscess without sinus; R79.82 Elevated C-reactive protein (CRP); R51 Headache; R10.84 Generalized abdominal pain
CPT/HCPCS: 36415; 70487; 74022; 80053; 81001; 82550; 82553; 83605; 83735; 84484; 85025; 86140; 87040; 93005; 94760; 96365; 96372; 96374; 96375; 99284; A4222; J0696; J1100; J1885; J7030; J7050; S0077